=== PATIENT | male | born 1965 | race Caucasian/White ===

== ENCOUNTER 2017-02-23 10:46 | Emergency (ER) | payer MEDICAID ==
[~2017-02-23] VITALS: Ht 180.3 cm; Wt 108.9 kg
[2017-02-23 11:35] VITALS: BP 144/96
== END 2017-02-23 11:45 | disposition home or self-care (01) ==
LOC: ER 11:13
DX: L01.00 Impetigo, unspecified (principal)

== ENCOUNTER 2018-07-23 15:31 | Emergency (ER) | payer MEDICAID ==
[~2018-07-23] VITALS: Ht 180.3 cm; Wt 99.8 kg
[2018-07-23 15:38] VITALS: BP 167/90
== END 2018-07-23 16:35 | disposition home or self-care (01) ==
LOC: ER 15:39
DX: S01.01XD Laceration without foreign body of scalp, subsequent encounter (principal); F17.210 Nicotine dependence, cigarettes, uncomplicated; Z48.02 Encounter for removal of sutures; X58.XXXD Exposure to other specified factors, subsequent encounter